=== PATIENT | male | born 1940 | race Caucasian/White ===

== ENCOUNTER 2018-02-27 18:31 | Inpatient (IN) | payer MEDICARE, OTHER ==
[~2018-02-27] VITALS: Ht 167.6 cm; Wt 98.0 kg
--- NOTE | 2018-02-27 18:31 | NUR ---
BIBRA 89 FROM HOME FOR WORSENING ALTERED MENTAL STATUS, TACHYCARDIC, BG 325 COMPUTER APPLICATIONS INSTRUCTOR, TO ER BED 8, MD AT BEDSIDE
--- NOTE | 2018-02-27 18:42 | NUR ---
Called nursing home management supervisor and informed her that this pt would most likely need the acuity of ICU and to have a bed on stand by
[2018-02-27] MEDS ORDERED: METF-440 PO (18:43)
[2018-02-27] MEDS ORDERED: HYDR-4354 PO (18:43)
[2018-02-27] MEDS ORDERED: IBUP-1953 PO (18:43)
[2018-02-27] MEDS ORDERED: SPIR50TA5 PO (18:43)
[2018-02-27] MEDS ORDERED: GABA-534 PO (18:43)
[2018-02-27] MEDS ORDERED: METO25TA3 PO (18:43)
[2018-02-27] MEDS ORDERED: ATOR40TA PO (18:43)
[2018-02-27] MEDS ORDERED: ERGO500014 PO (18:43)
[2018-02-27] MEDS ORDERED: FENO134C PO (18:43)
[2018-02-27] MEDS ORDERED: LEVA15HF4 IH (18:43)
[2018-02-27] MEDS ORDERED: BUME1TAB4 PO (18:43)
[2018-02-27] MEDS ORDERED: ASPI-1152 PO (18:43)
[2018-02-27] MEDS ORDERED: BECL10.6 IH (18:43)
[2018-02-27] MEDS ORDERED: FAMO20TA8 PO (18:43)
[2018-02-27] MEDS ORDERED: AMLO1CAP8 PO (18:43)
[2018-02-27] MEDS ORDERED: NATE120T6 PO (18:43)
[2018-02-27 18:45] VITALS: BP 153/84
[2018-02-27 18:53] LABS: BASOPHILS # (AUTO) 0.1 /CMM (0.0-0.2); BASOPHILS % (AUTO) 0.6 % (0.0-2.0); EOSINOPHILS % (AUTO) 0.1 % (0.0-6.0); HEMATOCRIT 37 % (39-51); HEMOGLOBIN 12.2 g/dL (13.5-17.5); LYMPHOCYTES # (AUTO) 1.2 /CMM (0.8-4.8); LYMPHOCYTES % (AUTO) 11.4 % (20.0-44.0); MEAN CORPUSCULAR HGB CONC 33 g/dl (31.0-36.0); MEAN CORPUSCULAR VOLUME 90 fL (80-96); MONOCYTES # (AUTO) 0.9 /CMM (0.1-1.30); MONOCYTES % (AUTO) 8.4 % (2.0-12.0); NEUTROPHILS # (AUTO) 8.5 /CMM (1.8-8.9); NEUTROPHILS % (AUTO) 79.5 % (43.0-81.0); PLATELET COUNT (AUTO) 232 /CMM (150-450); RED BLOOD CELL COUNT(AUTO) 4.15 MIL/uL (4.5-6.0); WHITE BLOOD COUNT (AUTO) 10.6 K/uL (4.3-11.0)
[2018-02-27] MEDS ORDERED: ACETAMINOPHEN 650 MG/SUPP.RECT RC ONE ×2 (19:00→19:05)
[2018-02-27 19:04] LABS: CARBON DIOXIDE 28 mmol/L (21-32); CHLORIDE 100 mmol/L (98-107); CREATININE 1.8 mg/dL (0.6-1.3); GLUCOSE 328 mg/dL (74-106); POTASSIUM 5.9 mmol/L (3.5-5.1); SODIUM SERUM 134 mmol/L (136-145); UREA NITROGEN, BLOOD 38 mg/dL (7-18)
[2018-02-27] MEDS ORDERED: IPRATROPIUM NEB FS 0.5 MG/2.5 ML AMPUL.NEB ONE (19:06)
[2018-02-27] MEDS ORDERED: ALBUTEROL FS 2.5 MG/3 ML VIAL.NEB ONE (19:06)
[2018-02-27 19:10] LABS: ALANINE AMINOTRANSFERASE 119 U/L (12-78); ALBUMIN 3.5 g/dL (3.4-5.0); ALKALINE PHOSPHATASE 50 U/L (46-116); ASPARTATE AMINOTRANSFERASE 148 U/L (15-37); BILIRUBIN,DIRECT 0.2 mg/dL (0.0-0.2); BILIRUBIN,TOTAL 0.4 mg/dL (0.2-1.0); TOTAL PROTEIN, SERUM 7.7 g/dL (6.4-8.2)
--- NOTE | 2018-02-27 19:15 | NUR ---
OUT FOR CT
[2018-02-27 19:42] LABS: ABG BASE EXCESS 0.1 mmol/L; ABG OXYGEN SATURATION 98.8 % (92.0-98.5); ABG PCO2 59.8 mmHg (35.0-45.0); ABG PH 7.286 (7.350-7.450); ABG PO2 375.6 mmHg (75.0-100.0); AaDO2 277.6 mmHg; COHb 1.8 % (0.5-1.5); MetHb 0.5 % (0.0-1.5); O2Hb 96.5 % (94.0-97.0); SITE, ABG Left Radial; VENT MODE, BG ST 15/5
--- NOTE | 2018-02-27 19:45 | NUR ---
URINE SPECIMEN SENT TO LAB
--- NOTE | 2018-02-27 19:45 | NUR ---
REPORT GIVEN TO RICHARD LAWSON FOR STEPHANIE
--- NOTE | 2018-02-27 19:58 | NUR ---
RAPID INFLUENZA SWAB COLLECTED AND SENT TO LAB
[2018-02-27] MEDS ORDERED: VANCOMYCIN 1 GM in IV D5W 250 ML IV ONE (20:00)
[2018-02-27] MEDS ORDERED: MEROPENEM 500 MG in IV NS 0.9% 50 ML IV ONE (20:00)
[2018-02-27] MEDS ORDERED: ASPIRIN 300 MG/SUPP.RECT RC ONE ×2 (20:00→20:11)
[2018-02-27] MEDS ORDERED: VANCOMYCIN 1 GM VIAL ONE (20:14)
[2018-02-27] MEDS ORDERED: MEROPENEM 500 MG VIAL IV ONE (20:14)
[2018-02-27 20:17] LABS: APPEARANCE,URINE Clear (CLEAR); BILIRUBIN,URINE Negative (NEGATIVE); BLOOD, URINE Trace-intact Ery/uL (NEGATIVE); COLOR,URINE Yellow (YELLOW); KETONES,URINE Trace (NEGATIVE); LEUKOCYTE ESTERASE ,URINE Negative (NEGATIVE); NITRITE, URINE Negative (NEGATIVE); PH,URINE 5.5 (5.0-8.0); PROTEIN,URINE 100 mg/dl (NEGATIVE); UGLUCOSE Negative (NEGATIVE); UROBILINOGEN,URINE 0.2 EU/dL (0.2)
--- NOTE | 2018-02-27 20:25 | NUR ---
PER MD ZELYAA, HOLD ON GIVING PT ASPIRIN SUPPOSITORY UNTIL FURTHER EVALUATION
[2018-02-27] MEDS ORDERED: INSULIN REGULAR, HUMAN 100 UNIT/ML 10 ML VIAL IV ONE (20:30)
--- NOTE | 2018-02-27 20:31 | NUR ---
Received a call from Yamileth from [facility], gave clinical information on the patient's status, and was told she would call back with confirmation on approval for admission
[2018-02-27 20:35] LABS: BACTERIA,URINE 1+ /HPF (None Seen); SQUAMOUS EPITHELIAL CELL,UR 0-2 /HPF (None Seen)
[2018-02-27 20:36] LABS: URINE AMORPHOUS URATE Many /HPF (None Seen)
--- NOTE | 2018-02-27 20:37 | NUR ---
BS 310. AWARE.
[2018-02-27] MEDS ORDERED: INSULIN REGULAR, HUMAN 100 UNIT/ML 10 ML VIAL ONE (20:39)
[2018-02-27 20:56] LABS: ABG BASE EXCESS -0.7 mmol/L; ABG OXYGEN SATURATION 97.8 % (92.0-98.5); ABG PCO2 63.1 mmHg (35.0-45.0); ABG PH 7.258 (7.350-7.450); ABG PO2 145.7 mmHg (75.0-100.0); AaDO2 66.9 mmHg; COHb 0.8 % (0.5-1.5); MetHb 0.5 % (0.0-1.5); O2Hb 96.5 % (94.0-97.0); SITE, ABG Left Radial; VENT MODE, BG ST 20/5
--- NOTE | 2018-02-27 21:08 | NUR ---
Pt is assigned to ICU rm#: [id number], DX: Acute Respiratory Failure, Sepsis, N-STemi, and accepting MD: Dr. Kurtz
[2018-02-27] MEDS ORDERED: ASPIRIN 325 MG TABLET ONE (21:45)
[2018-02-27] MEDS ORDERED: CEFTRIAXONE 2 G in IV D5W 100 ML IV SCH (22:00)
[2018-02-27] MEDS ORDERED: ALBUTEROL HALF STRENGTH 1.25 MG/3 ML VIAL.NEB NEB PRN (22:00)
[2018-02-27] MEDS ORDERED: DEXTROSE 50%-WATER 50 ML DISP.SYRIN IV PRN (22:00)
[2018-02-27] MEDS: BLOOD SUGAR DIAGNOSTIC 1 EACH STRIP VI SCH (22:00)
[2018-02-27] MEDS: ASPIRIN 81 MG TAB.CHEW PO SCH ×2 (22:00→23:00)
[2018-02-27] MEDS ORDERED: ACETAMINOPHEN 325 MG TABLET PO PRN (22:00)
[2018-02-27] MEDS ORDERED: ASPIRIN 81 MG TAB.CHEW ONE (22:09)
--- NOTE | 2018-02-27 22:10 | NUR ---
REPORT GIVEN TO ED, RN FOR STEPHANIE
[2018-02-27] MEDS ORDERED: IBUPROFEN 400 MG TABLET PO PRN (22:30)
[2018-02-27] MEDS ORDERED: IV 1/2NS 1000 ML 1,000 ML IV PRN (22:30)
[2018-02-27 22:35] VITALS: BP 112/67
[2018-02-27] MEDS ORDERED: CEFTRIAXONE 1 G VIAL ONE (22:51)
[2018-02-27] MEDS: HEPARIN SODIUM, PORCINE 5000 UNITS/1 ML VIAL SQ SCH (22:55)
[2018-02-27] MEDS: methylPREDNISolone SOD SUCC 40 MG/ML VIAL IV SCH (22:55)
[2018-02-27] MEDS: ATORVASTATIN 40 MG TABLET PO SCH (22:55)
[2018-02-27 23:01] VITALS: BP 117/66
[2018-02-27] MEDS: *INSULIN REGULAR(HUMULIN R)HUM 100 UNIT/ML VIAL SQ PRN (23:16)
[2018-02-27] MEDS ORDERED: INSULIN GLARGINE, 100 UNIT/ML CARTRIDGE SQ ONE (23:28)
[2018-02-27 23:30] VITALS: BP 96/53
[2018-02-27] MEDS: INSULIN GLARGINE, 100 UNIT/ML CARTRIDGE SQ SCH (23:35)
[2018-02-27 23:45] VITALS: BP 96/53
[2018-02-28] VITALS (25 sets, daily range): BP systolic 83–142; BP diastolic 48–83
[2018-02-28] MEDS: IPRATROPIUM NEB FS 0.5 MG/2.5 ML AMPUL.NEB NEB SCH ×5 (01:15→20:22)
[2018-02-28] MEDS: ALBUTEROL FS 2.5 MG/0.5 ML VIAL.NEB NEB SCH ×5 (01:16→20:22)
--- NOTE | 2018-02-28 03:02 | NUR ---
RT NOTE PT REFUSED TO STAY ON BIPAP RN NOTIFIED. PLACED ON NASAL CANNULA SAT WELL. WILL CONTINUE TO MONITOR. Addendum: 02/28/18 at 0302 by KARISSA REDMOND RT Amended: Links added.
[2018-02-28 05:11] LABS: BASOPHILS # (AUTO) 0.1 /CMM (0.0-0.2); BASOPHILS % (AUTO) 0.5 % (0.0-2.0); HEMATOCRIT 37 % (39-51); LYMPHOCYTES # (AUTO) 1.1 /CMM (0.8-4.8); LYMPHOCYTES % (AUTO) 11.2 % (20.0-44.0); MEAN CORPUSCULAR HGB CONC 32 g/dl (31.0-36.0); MEAN CORPUSCULAR VOLUME 90 fL (80-96); MONOCYTES # (AUTO) 0.4 /CMM (0.1-1.30); MONOCYTES % (AUTO) 4.3 % (2.0-12.0); NEUTROPHILS # (AUTO) 8.4 /CMM (1.8-8.9); PLATELET COUNT (AUTO) 234 /CMM (150-450); RED BLOOD CELL COUNT(AUTO) 4.16 MIL/uL (4.5-6.0)
[2018-02-28 05:32] LABS: CHOLESTEROL 164 mg/dL (<200); HDL CHOLESTEROL 24 mg/dL (40-60); LDL 88 mg/dL (0-99); TRIGLYCERIDES 291 mg/dL (30-150)
[2018-02-28 05:35] LABS: ALANINE AMINOTRANSFERASE 125 U/L (12-78); ALBUMIN 3.5 g/dL (3.4-5.0); ALKALINE PHOSPHATASE 48 U/L (46-116); ASPARTATE AMINOTRANSFERASE 156 U/L (15-37); BILIRUBIN,DIRECT 0.2 mg/dL (0.0-0.2); BILIRUBIN,TOTAL 0.3 mg/dL (0.2-1.0); CALCIUM, SERUM 9.6 mg/dL (8.5-10.1); CARBON DIOXIDE 27 mmol/L (21-32); CHLORIDE 100 mmol/L (98-107); CREATININE 1.7 mg/dL (0.6-1.3); GLUCOSE 236 mg/dL (74-106); POTASSIUM 5.3 mmol/L (3.5-5.1); SODIUM SERUM 136 mmol/L (136-145); TOTAL PROTEIN, SERUM 7.9 g/dL (6.4-8.2); UREA NITROGEN, BLOOD 46 mg/dL (7-18)
--- NOTE | 2018-02-28 06:44 | NUR ---
SWITCHING OPERATOR PT WAS ADMITTED FROM ER WITH DIAGNOSIS , AMS, RESPIRATORY FAILURE, COPD EXACERBATION, NSTEMI. PT IS AWAKE ALERT ORIENTED X 3. DANISH/UGANDAN SPEAKING. SPEECH IS CLEAR, MOVES ALL EXTREMITIES, NO MOTOR OR SENSORY DEFICIT.ABG-RESPIRATORY ACIDOSES- PT WAS PLACED ON BIPAP-22/5-6, 30%.TOLERATES WELL. SCOPE-SR-ST, AFEBRILE. CT HEAD WELL CT ABDOMEN/PELVIS DONE- SEE RESULTS. PT IS SUPPOSED TO HAVE LP & 2D ECHO IN A.M.BECAUSE IT COULD NOT BE DONE AT NIGHT TIME. D-R KIANA WAS NOTIFIED, IV 1/2 NS AT 50 ML/H. AT 3 A.M. PT REFUSED BIPAP & WAS PLACED ON N/C- TOLERATES WELL. F/C DRAINS SUFFICIENT AMT. OF CLEAR URINE. PT GOT 1 B.M. AT 04.15. A.M. TROPONIN LEVEL WAS ELEVATED FROM 0.35 TO 2.128. M-D WAS NOTIFIED, NO NEW ORDERS GIVEN. PT STATES THAT FEELS WELL AND WANTS TO BE D/C HOME.
[2018-02-28] MEDS: BLOOD SUGAR DIAGNOSTIC 1 EACH STRIP VI SCH ×4 (08:11→21:51)
[2018-02-28] MEDS: INSULIN REGULAR, HUMAN 100 UNIT/ML 3 ML VIAL SQ PRN ×3 (08:19→17:20)
[2018-02-28] MEDS: ASPIRIN EC 81 MG TABLET.DR PO SCH (08:29)
[2018-02-28] MEDS: NATEGLINIDE 60 MG TABLET PO SCH ×3 (08:29→16:41)
[2018-02-28] MEDS: METFORMIN 500 MG TABLET PO SCH ×2 (08:29→16:41)
[2018-02-28] MEDS: ATORVASTATIN 40 MG TABLET PO SCH (08:29)
[2018-02-28] MEDS ORDERED: LEVOFLOXACIN 500 MG /D5W 100ML 500 MG in PREMIX 1 EA IV SCH (08:30)
[2018-02-28] MEDS ORDERED: INSULIN GLARGINE, 100 UNIT/ML CARTRIDGE SQ ONE (08:30)
--- NOTE | 2018-02-28 08:30 | NUR ---
ICU/RN: Dr Kurtz at bedside; updated on pt status. Troponin and abn labs resulted. Informed MD of meds needing reconciliation, MD to review. Ok to DC FC per MD. Daughter Laura called by MD and updated on pt status. Pt anxious and requesting to go home, per pt "I feel better, I want to go home."
[2018-02-28] MEDS: methylPREDNISolone SOD SUCC 40 MG/ML VIAL IV SCH ×3 (08:33→16:41)
[2018-02-28] MEDS: FAMOTIDINE (20 MG) 20 MG TABLET PO SCH ×2 (08:33→16:52)
[2018-02-28] MEDS: AMLODIPINE BESYLATE 5 MG TABLET PO SCH (08:33)
[2018-02-28] MEDS: METOPROLOL SUCCINATE 25 MG TAB.SR.24H PO SCH (08:34)
[2018-02-28] MEDS: HEPARIN SODIUM, PORCINE 5000 UNITS/1 ML VIAL SQ SCH (08:38)
[2018-02-28] MEDS ORDERED: BENAZEPRIL HCL 10 MG TABLET PO SCH (09:00)
--- NOTE | 2018-02-28 09:00 | NUR ---
ICU/RN: Dr Watkins at bedside; updated on pt status. Case DW family, needs cardiac cath this admission. Orders for heparin drip noted; faxed to Rx. Non-formulary med obtained and sent to Rx. Family educated and in agreement with POC.
[2018-02-28] MEDS ORDERED: LEVOFLOXACIN 750 MG /D5W 150ML 750 MG in PREMIX 1 EA IV SCH (10:00)
[2018-02-28] MEDS ORDERED: HEPARIN INFUSION/D5W 500 ML IV PRN (10:00)
[2018-02-28] MEDS: NICOTINE PATCH (21MG) 21 MG PATCH.TD24 TD SCH (10:15)
--- NOTE | 2018-02-28 10:15 | NUR ---
ICU/RN: Pt incontinent of urine, was unable to ambulate to bathroom in time; voided on gown. Hygienic care rendered. Provided with bedside urinal.
[2018-02-28] MEDS: NITROGLYCERIN 30 GM TUBE TP SCH ×2 (10:19→21:51)
[2018-02-28 10:38] LABS: THYROID STIMULATING HORMONE 0.371 uIU/mL (0.358-3.74)
[2018-02-28 10:42] LABS: MAGNESIUM 2.5 mg/dL (1.8-2.4)
--- NOTE | 2018-02-28 11:30 | NUR ---
ICU/RN: Pt transferred to [facility] in stable condition, VSS no distress noted. Rx confirmed receipt of heparin drip protocol, awaiting delivery. Awaiting orders regarding anxiolytic from Dr Kurtz, pt increasingly agitated and restless. Bedside report given to Aiyana for STEPHANIE.
--- NOTE | 2018-02-28 12:00 | NUR ---
[facility] RN NOTE: RECEIVED PATIENT REPORT FROM CARLOS VOCATIONAL ADVISER AND PATIENT WAS BROUGHT IN VIA BED TO ROOM 103 AND ACCOMPANIED BY HIS DAUGHTER, REHANA. PATIENT WAS ALERT, AWAKE AND VERBALLY RESPONSIVE. RESPIRATION EVEN AND UNLABORED WITH SATURATION OF 96% IN O2 4L/MIN VIA NC. DENIED ANY PAIN. ATTACHED TO UNIVERSAL WINDING MACHINE OPERATOR SR HR 80. PATIENT ON UPRIGHT POSITION IN THE BED. ALL BELONGINGS WERE BROUGHT BY THE DAUGHTER, REHANA. CALLED PHARMACY RE: THE HEPARIN BOLUS ORDER AND AWAITING FOR THEIR ORDERS TO BE PLACED IN THE EMAR. PATIENT AND DAUGHTER REHANA WAS MADE AWARE. CALL LIGHT WITHIN REACH. NEEDS ANTICIPATED.
--- NOTE | 2018-02-28 12:22 | NUR ---
RN NOTE: HEPARIN 5000 UNIT IV BOLUS WAS GIVEN PER PROTOCOL. AND CALLED PHARMACY AND SPOKE WITH NUHA RE: THE HEPARIN BAG. PER NUHA, HE WILL SEND IT TO THE UNIT.
[2018-02-28] MEDS ORDERED: HEPARIN SODIUM, PORCINE 5000 UNITS/1 ML VIAL IV ONE ×2 (12:30→13:00)
--- NOTE | 2018-02-28 13:20 | NUR ---
RN NOTE; RECEIVED THE HEPARIN BAG AND STARTED THE HEPARIN DRIP PER PROTOCOL. AND PTT WILL BE REPEATED IN 6 HOUR. PATIENT AND DAUGHTER REHANA AWARE.
[2018-02-28] MEDS: IPRATROPIUM NEB FS 0.5 MG/2.5 ML AMPUL.NEB NEB PRN ×2 (14:47→23:30)
[2018-02-28] MEDS: IV D5/ 0.9% NACL 1,000 ML IV PRN (14:51)
--- NOTE | 2018-02-28 15:49 | NUR ---
RN NOTE: PAGED DR. BRUNO RE: THE PATIENT'S CONCERN OF GETTING AN IN HOUSE ORDER FOR NORCO 10-325 MG 1 TAB PO Q12HR IN WHICH IT WAS PRESCRIBED TO HIM AT HOME FOR HIS BACK PAIN. AWAITING FOR MD'S RESPONSE.
--- NOTE | 2018-02-28 16:05 | NUR ---
RN NOTE: RECEIVED AN ORDER FROM DR. BRUNO FOR THE [place]. PATIENT AND REHANA, DAUGHTER WAS MADE AWARE.
--- NOTE | 2018-02-28 16:08 | NUR ---
RN NOTE: DR. BRUNO WAS INFORMED ABOUT THE PATIENT'S POTASSIUM LEVEL. AWAITING FOR MD'S RESPONSE.
--- NOTE | 2018-02-28 16:30 | NUR ---
RN NOTE: RECEIVED A RESPONSE FROM DR. BRUNO AND PER NO NEW ORDER. HE SAW THE BLOOD TEST RESULT THIS AM.
[2018-02-28] MEDS: HYDROCODONE/APAP 10/325MG 1 EA TABLET PO PRN (16:42)
--- NOTE | 2018-02-28 19:45 | NUR ---
RN NOTE: PATIENT ON STABLE CONDITION AND BEDSIDE REPORT WAS GIVEN TO PM SHIFT NURSE FOR CONTINUITY OF CARE INCLUDING THE PTT RESULT. NO BLEEDING NOTED ON THE PATIENT. REMAINED ON THE HEPARIN DRIP.
--- NOTE | 2018-02-28 20:42 | NUR ---
[facility] RN NOTE aPTT RESULTED, 60.3. PER PROTOCOL, NO CHANGE IN DOSING. CHECKED WITH CHARGE NURSE. NOTED.
[2018-02-28] MEDS: *INSULIN REGULAR(HUMULIN R)HUM 100 UNIT/ML VIAL SQ PRN (21:49)
[2018-02-28] MEDS: INSULIN GLARGINE, 100 UNIT/ML CARTRIDGE SQ SCH (21:50)
[2018-02-28] MEDS: ALPRAZOLAM 0.25 MG TABLET PO PRN (23:47)
--- NOTE | 2018-02-28 23:49 | NUR ---
PT REFUSING BIPAP AT THIS TIME NURSE NOTIFIED Addendum: 02/28/18 at 2350 by JEFE WEBER RT Amended: Links added.
[2018-03-01] VITALS: BP 109/49
[2018-03-01] MEDS: IPRATROPIUM NEB FS 0.5 MG/2.5 ML AMPUL.NEB NEB SCH ×5 (01:30→23:25)
[2018-03-01] MEDS: ALBUTEROL FS 2.5 MG/0.5 ML VIAL.NEB NEB SCH ×5 (01:30→23:25)
[2018-03-01] MEDS: IV D5/ 0.9% NACL 1,000 ML IV PRN (02:21)
[2018-03-01 04:00] VITALS: BP 127/65
[2018-03-01 06:18] LABS: BASOPHILS % (AUTO) 0.1 % (0.0-2.0); HEMATOCRIT 35 % (39-51); HEMOGLOBIN 11.3 g/dL (13.5-17.5); LYMPHOCYTES # (AUTO) 0.9 /CMM (0.8-4.8); LYMPHOCYTES % (AUTO) 10.3 % (20.0-44.0); MEAN CORPUSCULAR HGB CONC 33 g/dl (31.0-36.0); MEAN CORPUSCULAR VOLUME 89 fL (80-96); MONOCYTES # (AUTO) 0.6 /CMM (0.1-1.30); MONOCYTES % (AUTO) 6.8 % (2.0-12.0); NEUTROPHILS # (AUTO) 7.3 /CMM (1.8-8.9); NEUTROPHILS % (AUTO) 82.8 % (43.0-81.0); PLATELET COUNT (AUTO) 236 /CMM (150-450); RED BLOOD CELL COUNT(AUTO) 3.91 MIL/uL (4.5-6.0); WHITE BLOOD COUNT (AUTO) 8.8 K/uL (4.3-11.0)
--- NOTE | 2018-03-01 06:25 | NUR ---
RN CLOSING NOTES CONT ON HEPARIN AT 1200u/hr, aPTT DRAWN, AWAITING FOR RESULT. NO SIGNS OF BLEEDING, MONITORED CLOSELY. F/C DISCONTINUED YESTERDAY AM, PATIENT WITH NO URINARY RETENTION, URINATING WELL WITH CLEAR, YELLOW URINE. IVF ORDERED. REMAINS NSR, HR IN THE 70-80s. TITRATED PATIENT'S O2, NOW AT 2LPM VIA NC. OCCASIONAL NON-PRODUCTIVE COUGH NOTED, WHEEZING AND COARSE CRACKLES HEARD. SOB WITH EXERTION. HOB ELEVATED PER TOLERANCE. REFUSED NOC BIPAP, MONITORED CLOSELY. NEEDS ANTICIPATED AND MET. SAFETY AND COMFORT ENSURED. CALL LIGHT IN REACH. WILL ENDORSE ACCORDINGLY.
[2018-03-01 06:44] LABS: ALANINE AMINOTRANSFERASE 122 U/L (12-78); ALBUMIN 3.2 g/dL (3.4-5.0); ALKALINE PHOSPHATASE 46 U/L (46-116); ASPARTATE AMINOTRANSFERASE 121 U/L (15-37); BILIRUBIN,TOTAL 0.2 mg/dL (0.2-1.0); CALCIUM, SERUM 9.3 mg/dL (8.5-10.1); CARBON DIOXIDE 27 mmol/L (21-32); CHLORIDE 99 mmol/L (98-107); CREATININE 1.6 mg/dL (0.6-1.3); GLUCOSE 325 mg/dL (74-106); MAGNESIUM 2.4 mg/dL (1.8-2.4); PHOSPHORUS 3.1 mg/dL (2.5-4.9); SODIUM SERUM 134 mmol/L (136-145); TOTAL PROTEIN, SERUM 7.4 g/dL (6.4-8.2); UREA NITROGEN, BLOOD 57 mg/dL (7-18)
--- NOTE | 2018-03-01 06:51 | NUR ---
RN NOTES RECEIVED CRITICAL VALUE OF TROPONIN, 1.378, TRENDING DOWN. NOTED.
--- NOTE | 2018-03-01 07:00 | NUR ---
RN NOTES aPTT RESULTED, 53.6. NO CHANGE IN HEPARIN DOSING PER PROTOCOL. ENDORSED TO GET CLARKE.
[2018-03-01 08:00] VITALS: BP 109/49
--- NOTE | 2018-03-01 08:00 | NUR ---
cher rn note received patient in bed , alert oriented x3 ,on breathing tx at this time by rt , on tele monitor sr hr 79 , lt ac and lt hand hl intact .on ivf as ordered and heparin drip .bed in lowest and locked position call light within reach , plan of care discussed with patient, will cont to monitor closely
[2018-03-01] MEDS: BLOOD SUGAR DIAGNOSTIC 1 EACH STRIP VI SCH ×4 (08:05→21:25)
[2018-03-01] MEDS: ACETYLCYSTEINE 10% SOLN 400 MG/4 ML VIAL NEB SCH ×3 (08:30→23:25)
[2018-03-01] MEDS ORDERED: INSULIN GLARGINE, 100 UNIT/ML CARTRIDGE SQ ONE (08:30)
--- NOTE | 2018-03-01 08:35 | NUR ---
cher rn note spoke with dr zeng notifyed that patient til on heparin drip and trop 1.378 also notifyed that bp 109/49 ok to give norco
[2018-03-01] MEDS: ASPIRIN EC 81 MG TABLET.DR PO SCH (08:38)
[2018-03-01] MEDS: FAMOTIDINE (20 MG) 20 MG TABLET PO SCH ×2 (08:38→16:33)
[2018-03-01] MEDS: methylPREDNISolone SOD SUCC 40 MG/ML VIAL IV SCH ×3 (08:38→16:33)
[2018-03-01] MEDS: METFORMIN 500 MG TABLET PO SCH ×2 (08:38→16:33)
[2018-03-01] MEDS: METOPROLOL SUCCINATE 25 MG TAB.SR.24H PO SCH (08:40)
[2018-03-01] MEDS: ATORVASTATIN 40 MG TABLET PO SCH (08:41)
[2018-03-01] MEDS: HYDROCODONE/APAP 10/325MG 1 EA TABLET PO PRN ×2 (08:42→20:21)
[2018-03-01] MEDS: NICOTINE PATCH (21MG) 21 MG PATCH.TD24 TD SCH (08:45)
[2018-03-01] MEDS: NITROGLYCERIN 30 GM TUBE TP SCH ×2 (08:48→21:33)
[2018-03-01] MEDS: INSULIN REGULAR, HUMAN 100 UNIT/ML 3 ML VIAL SQ PRN ×3 (08:51→16:37)
[2018-03-01] MEDS: AMLODIPINE BESYLATE 5 MG TABLET PO SCH (08:56)
[2018-03-01] MEDS ORDERED: IV 1/2NS 1000 ML 1,000 ML IV PRN (09:00)
[2018-03-01] MEDS: NATEGLINIDE 60 MG TABLET PO SCH ×3 (09:44→16:33)
[2018-03-01] MEDS: ALPRAZOLAM 0.25 MG TABLET PO PRN (09:54)
--- NOTE | 2018-03-01 10:04 | NUR ---
SILVICULTURIST NOTE SEEN BY PT ABLE TO AMBULATE WELL WITH STAND BY ASSISTANCE. ALSO C\O ANXIOUS XANAX PO GIVEN BP122/78 ,SAT 98%
[2018-03-01] MEDS: HEPARIN SODIUM, PORCINE 5000 UNITS/1 ML VIAL SQ SCH ×2 (11:17→21:00)
--- NOTE | 2018-03-01 11:50 | NUR ---
CAR SWEEPER NOTE AMBULATED IN HALLWAY WITH STAND BY ASSISTANCE, NOT IN ACUTE DISTRESS, PER DR ABURTO HEPARIN DRIP STOPPED
[2018-03-01 12:00] VITALS: BP 113/70
--- NOTE | 2018-03-01 14:18 | NUR ---
regional telecommunications specialist note report given to fartun kaye
--- NOTE | 2018-03-01 14:20 | NUR ---
CAPTAIN'S ASSISTANT NOTES RECEIVED PT FROM RENNY CLARKE.
[2018-03-01 16:00] VITALS: BP 110/67
--- NOTE | 2018-03-01 17:00 | NUR ---
LEHR TENDER NOTES ZOEY CALLED FORM [facility] AND SAID THE [facility] WILL COME AND OPERATION SHIFT SUPERVISOR THE PT @[address] [facility] TO DO CARDIAC CATHETERIZATION.ALL THE PAPERWORK AND CD SHOULD BE READY AND NPO AT MIDNIGHT.CHARGE NURSE MADE AWARE.PT AND FAMILY MADE AWARE ABOUT IT.
--- NOTE | 2018-03-01 18:39 | NUR ---
BOILERMAKING SUPERVISOR CLOSING NOTES PT IS SITTING ON THE CHAIR NEAR BY THE BED.ALERT/ORIENTED X4 WITH IV FLUIDS IS RUNNING.IV SITE IS CLEAN,DRY AND INTACT.NO INFILTRATION NOTED.ENDORSED TO ARCHITECTURAL DRAFTER RN FOR STEPHANIE AND TOMORROWS PROCEDURE IN THE [facility] AND [facility] COUNSELLOR TIME AND NPO STATUS FROM MIDNIGHT ONWARDS.
[2018-03-01 20:00] VITALS: BP 131/62
[2018-03-01] MEDS: INSULIN GLARGINE, 100 UNIT/ML CARTRIDGE SQ SCH (21:32)
--- NOTE | 2018-03-01 23:33 | NUR ---
PT REFUSED BIPAP. NO DISTRESS. PT IS AWAKE AND ALERT. RN AWARE.
[2018-03-02 00:09] VITALS: BP 120/64
[2018-03-02 03:21] LABS: ABG BASE EXCESS 2.6 mmol/L; ABG OXYGEN SATURATION 91.9 % (92.0-98.5); ABG PCO2 41.7 mmHg (35.0-45.0); ABG PH 7.431 (7.350-7.450); ABG PO2 65.1 mmHg (75.0-100.0); AaDO2 34.7 mmHg; COHb 0.7 % (0.5-1.5); MetHb 0.3 % (0.0-1.5); SITE, ABG Right Radial; VENT MODE, BG ROOM AIR
[2018-03-02 03:42] LABS: BASOPHILS % (AUTO) 0.1 % (0.0-2.0); HEMATOCRIT 35 % (39-51); HEMOGLOBIN 11.4 g/dL (13.5-17.5); LYMPHOCYTES # (AUTO) 0.8 /CMM (0.8-4.8); LYMPHOCYTES % (AUTO) 12.3 % (20.0-44.0); MEAN CORPUSCULAR HGB CONC 32 g/dl (31.0-36.0); MEAN CORPUSCULAR VOLUME 89 fL (80-96); MONOCYTES # (AUTO) 0.5 /CMM (0.1-1.30); MONOCYTES % (AUTO) 7.8 % (2.0-12.0); NEUTROPHILS # (AUTO) 5.3 /CMM (1.8-8.9); NEUTROPHILS % (AUTO) 79.8 % (43.0-81.0); PLATELET COUNT (AUTO) 251 /CMM (150-450); RED BLOOD CELL COUNT(AUTO) 3.98 MIL/uL (4.5-6.0); WHITE BLOOD COUNT (AUTO) 6.6 K/uL (4.3-11.0)
[2018-03-02 03:59] LABS: ALANINE AMINOTRANSFERASE 118 U/L (12-78); ALBUMIN 3.1 g/dL (3.4-5.0); ALKALINE PHOSPHATASE 41 U/L (46-116); ASPARTATE AMINOTRANSFERASE 112 U/L (15-37); BILIRUBIN,TOTAL 0.3 mg/dL (0.2-1.0); CALCIUM, SERUM 9.3 mg/dL (8.5-10.1); CARBON DIOXIDE 26 mmol/L (21-32); CHLORIDE 99 mmol/L (98-107); CREATININE 1.2 mg/dL (0.6-1.3); GLUCOSE 258 mg/dL (74-106); MAGNESIUM 2.1 mg/dL (1.8-2.4); PHOSPHORUS 3.1 mg/dL (2.5-4.9); POTASSIUM 5.1 mmol/L (3.5-5.1); SODIUM SERUM 135 mmol/L (136-145); UREA NITROGEN, BLOOD 46 mg/dL (7-18)
[2018-03-02 04:00] VITALS: BP 130/67
--- NOTE | 2018-03-02 05:00 | NUR ---
0500 CALLED [facility] TWICE TO GIVE REPORT BUT NO ANSWER.
--- NOTE | 2018-03-02 05:15 | NUR ---
0515 CALLED [facility] ENVIRONMENTAL CONTROL ADMINISTRATOR TO VERIFY PATIENT'S TRANSFER, SPOKE WITH YOSEPH IN NURSING OFFICE AND HE CONFIRMED PT.'S TRANSFER AT 0630.
--- NOTE | 2018-03-02 05:22 | NUR ---
0522 CALLED [facility] TO FOLLOW UP ON PATIENT'S STEAM DISTRIBUTION SUPERVISOR TIME, SPOKE WITH SPENCER AND SHE SAID AMBULANCE SHOULD BE HERE ANY MINUTE.
--- NOTE | 2018-03-02 05:46 | NUR ---
TELE-1/PRODUCTION CLERKS SUPERVISOR PT OFF THE FLOOR WITH [facility] FOR TRANSFER TO [facility] FOR CARDIAC CATH.
--- NOTE | 2018-03-02 06:25 | NUR ---
TELE-1/FRAMING CONSULTANT REPORT TO CLEO LAWSON AT [facility] FOR CONT OF CARE.
== END 2018-03-02 05:52 | disposition short-term general hospital (02) | DRG 280 ==
LOC: ER 18:33 → ICU 21:16 → TELE-TD 02-28 11:43 → TELE1 03-01 09:50
PROVIDERS: ADMIT Internal Medicine; ATTEND Internal Medicine
PROC: 5A09357 Assistance with Respiratory Ventilation, Less than 24 Consecutive Hours, Continuous Positive Airway Pressure (ICD-10-PCS; principal; 2018-02-27)
DX: I21.4 Non-ST elevation (NSTEMI) myocardial infarction (principal); J96.01 Acute respiratory failure with hypoxia; J96.02 Acute respiratory failure with hypercapnia; J44.1 Chronic obstructive pulmonary disease with (acute) exacerbation; N17.9 Acute kidney failure, unspecified; E87.2 Acidosis; G93.40 Encephalopathy, unspecified; G47.33 Obstructive sleep apnea (adult) (pediatric); E66.9 Obesity, unspecified; Z68.34 Body mass index [BMI] 34.0-34.9, adult; F17.210 Nicotine dependence, cigarettes, uncomplicated; I25.10 Atherosclerotic heart disease of native coronary artery without angina pectoris; Z98.61 Coronary angioplasty status; E78.00 Pure hypercholesterolemia, unspecified; Z83.3 Family history of diabetes mellitus; Z82.49 Family history of ischemic heart disease and other diseases of the circulatory system; Z79.82 Long term (current) use of aspirin; Z79.84 Long term (current) use of oral hypoglycemic drugs; E11.9 Type 2 diabetes mellitus without complications; E78.5 Hyperlipidemia, unspecified; E87.5 Hyperkalemia; Z79.899 Other long term (current) drug therapy; I10 Essential (primary) hypertension; R50.9 Fever, unspecified; D50.9 Iron deficiency anemia, unspecified
CPT/HCPCS: 36415; 36600; 70450-TC; 71045-TC; 80048-TC; 80053-TC; 80061-TC; 80076-TC; 81000-TC; 82728-TC; 82803-TC; 82962-TC; 83540-TC; 83605-TC; 83735-TC; 84100-TC; 84439-TC; 84443-TC; 84484-TC; 85025-TC; 85730-TC; 87040-TC; 87081-TC; 87086-TC; 87400; 93307-TC; 94799-TC; 99082-TC; A4216; G0378; J0696; J1644; J1815; J1956; J2185; J2920; J3370; J3490; J7042; J7060